=== PATIENT | male | born 1935 | race Caucasian/White ===

== ENCOUNTER 2019-07-16 11:30 | Inpatient (IN) | payer MEDICARE, OTHER ==
[~2019-07-16] VITALS: Ht 188 cm; Wt 90.7 kg
[~2019-07-16 11:30] MED LIST: ADULT LOW DOSE81 MG OR; CALCIUM 500 +1 EAC4 PO; FISH OIL 1,001000 MG PO; GLUCOPHAGE500 MG PO; LIPITOR40 MG PO; NITROGLYCERIN0.4 MG SUBLING; PLAVIX 75 MG TA75 MG OR; TOPROL XL25 MG PO
[2019-07-16 11:34] VITALS: BP 167/84
[2019-07-16 11:50] LABS: ABSOLUTE BASOPHILS 0.1 thou/uL (0.0-0.2); ABSOLUTE EOSINOPHILS 0.1 thou/uL (0.0-0.7); ABSOLUTE LYMPHOCYTES 0.9 thou/uL (0.8-5.3); ABSOLUTE MONOCYTES 0.7 thou/uL (0.0-1.2); ABSOLUTE NEUTROPHILS 6.4 thou/uL (1.6-8.1); BASOPHILS 0.7 %; EOSINOPHILS 1.4 %; HEMATOCRIT 45.8 % (42.0-52.0); HEMOGLOBIN 15.5 gm/dL (14.0-18.0); LYMPHOCYTES 10.9 %; MCH 29.8 pg (26.0-34.0); MCHC 33.8 g/dL (28.0-37.0); MCV 88.1 fL (80.0-100.0); MONOCYTES 8.6 %; MPV 9.9 fl. (7.2-11.1); NUCLEATED RBCS 0 /100WBC; PLATELET COUNT* 122 thou/uL (150-400); POLYS 78.4 %; RDW-CV 15.3 % (10.5-14.5); WBC 8.1 thou/uL (4.0-11.0)
[2019-07-16] MEDS ORDERED: ZESTRIL5 MG PO (11:56)
[2019-07-16 12:03] LABS: CALCIUM 9.4 mg/dL (8.5-10.1); POTASSIUM 4.2 mmol/L (3.5-5.1)
[2019-07-16 12:12] LABS: ALBUMIN 3.8 g/dL (3.4-5.0); MAGNESIUM 2.1 mg/dL (1.8-2.4); TOTAL BILIRUBIN 0.7 mg/dL (<0.1-1.0); TOTAL PROTEIN 7.5 g/dL (6.4-8.2)
[2019-07-16 15:07] VITALS: BP 163/85
--- NOTE | 2019-07-16 15:31 | EKG ---
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 : 1935 Requested By: Dominick Yancey Order Number: [id number] MD: Sathish Franco Measurements Intervals [place] Rate: 73 P: 44 W[place]: 178 QRS: -66 QRSD: 146 T: 54 QT: 419 QTc: 462 Interpretive Statements Sinus rhythm RBBB and LAFB Baseline wander in lead(s) V2 No previous ECG available for comparison Electronically Signed On 07-16-2019 15:31:03 PARTNERSHIP 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
[2019-07-16 16:35] VITALS: BP 153/76
[2019-07-16] MEDS ORDERED: ASA81BEC PO (17:33)
[2019-07-16] MEDS ORDERED: CALCIUM 500 MG1 EAC2 PO (17:34)
[2019-07-16 19:40] VITALS: BP 126/66
[2019-07-17] VITALS (19 sets, daily range): BP systolic 119–1129; BP diastolic 60–92
[2019-07-17 05:11] LABS: CHOLESTEROL 110 mg/dL (<200); HDL CHOLESTEROL 39 mg/dL (>40); LDL CHOLESTEROL 60 mg/dL (<100); TC:HDL 2.8 Ratio (Not establshd); TRIGLYCERIDE 56 mg/dL (<150); VLDL 11 mg/dL (<40)
[2019-07-17 05:24] LABS: SERUM ASSESSMENT Clear
[2019-07-17 08:12] LABS: INR 1.1; PROTIME 10.8 Seconds (9.20-11.50)
[2019-07-17 10:32] LABS: ABSOLUTE BASOPHILS 0.1 thou/uL (0.0-0.2); ABSOLUTE EOSINOPHILS 0.1 thou/uL (0.0-0.7); ABSOLUTE LYMPHOCYTES 0.8 thou/uL (0.8-5.3); ABSOLUTE MONOCYTES 0.6 thou/uL (0.0-1.2); ABSOLUTE NEUTROPHILS 4.2 thou/uL (1.6-8.1); BASOPHILS 1.2 %; EOSINOPHILS 1.6 %; HEMATOCRIT 41.4 % (42.0-52.0); HEMOGLOBIN 14.1 gm/dL (14.0-18.0); LYMPHOCYTES 14.6 %; MCH 29.8 pg (26.0-34.0); MCHC 33.9 g/dL (28.0-37.0); MCV 87.8 fL (80.0-100.0); MONOCYTES 10.6 %; MPV 10.7 fl. (7.2-11.1); NUCLEATED RBCS 0 /100WBC; PLATELET COUNT* 113 thou/uL (150-400); RBC 4.72 mil/uL (4.50-6.00); RDW-CV 15.1 % (10.5-14.5); WBC 5.8 thou/uL (4.0-11.0)
[2019-07-17 10:38] LABS: CALCIUM 8.9 mg/dL (8.5-10.1); POTASSIUM 4.4 mmol/L (3.5-5.1)
[2019-07-17 10:43] LABS: ALBUMIN 3.3 g/dL (3.4-5.0); TOTAL BILIRUBIN 0.7 mg/dL (<0.1-1.0)
--- NOTE | 2019-07-17 10:45 | CON ---
[facility] [address] [place] [address] CONSULTATION Name: ANTHONY DE PAZ Room: [address] IN [facility]#: [id number] Admission: 07/16/19 Attend Phys: Sanjiv Mojica Discharge: Date of : 33 Report #: [id number] THIS REPORT FOR: //name// cc: Michael Clinton MD, Richard C. MD ~ THIS REPORT FOR: //name// CC: Michael Zhou DATE OF SERVICE: 07/16/2019 CARDIOLOGY CONSULTATION HISTORY OF PRESENT ILLNESS: The patient is an 84-year-old single white male who I was asked to see in the Emergency Room after complaining of chest pain. The patient initially presented back in 2009. I placed a stent in his diagonal artery at [facility]. He has done well since that time. A year ago, he underwent a stress echocardiogram that showed no evidence of ischemia with an ejection fraction of 60%. I just saw him in Cardiology Clinic in March when he was doing well. He stays fairly active. However, the past couple of weeks, he has been having intermittent chest pressure. It occasionally makes him diaphoretic. He has had no energy. He denied the pressure being related to food. It occurred with exertion. It also occurs at night. There is no associated shortness of breath or nausea. After the episode last night, he came to the Emergency Room and was admitted for further evaluation and treatment. He has had no bleeding. He does have a chronic cough. No recent fever. Denies exertional dyspnea, palpitations or syncope. PAST MEDICAL HISTORY: Significant for back surgery, cataract extraction, knee replacement, removal of a skin cancer. He has a history of prostate cancer. MEDICATIONS: Include aspirin, Lipitor, metformin, lisinopril. ALLERGIES: He has no known drug allergies. FAMILY HISTORY: Negative for heart disease. SOCIAL HISTORY: He is , lives by himself [place], [place]. No smoking or alcohol abuse. REVIEW OF SYSTEMS: No history of stroke. He had previous vascular screening, showed no carotid stenosis. He has had no history of asthma, liver disease, kidney disease, [place] [address] CONSULTATION Name: ANTHONY DE PAZ [place] Room: [address]#: [id number] Admission: 07/16/19 Attend Phys: Sanjiv Mojica Discharge: Date of : 33 Report #: [id number] PHYSICAL EXAMINATION: GENERAL: Revealed an elderly male, appeared in no acute distress. VITAL SIGNS: Blood pressure 150/80, pulse is 80. HEENT: He is anicteric, mucous membranes moist. NECK: Veins do not appear distended. No carotid bruits. CHEST: Clear to auscultation. CARDIOVASCULAR: Regular rate and rhythm, grade 2 systolic ejection murmur. ABDOMEN: Soft. EXTREMITIES: Had no edema. SKIN: Cool and dry. NEUROLOGIC: Nonfocal. 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 His chest x-ray in the Emergency Room today showed normal heart size and clear lung mosley. LABORATORY DATA: Sodium 140, BUN 20, creatinine 1.0. Liver function studies were normal. Troponin 0.06. BNP 417. White blood cell count 8.1, hemoglobin 15.5. IMPRESSION AND RECOMMENDATIONS: 1. Unstable angina. Recommend cardiac catheterization. 2. Diabetes. 3. Hyperlipidemia. The patient is on a statin drug. 4. 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 5. Aortic sclerosis. No evidence of significant aortic stenosis. <ELECTRONICALLY SIGNED> By: Sathish Franco MD, FACC 07/17/19 1045 1420 [id number] Franco MD, FACC /nt
--- NOTE | 2019-07-17 16:37 | 2DMMODE ---
[place] [address] 2 D/M-MODE ECHOCARDIOGRAM Name: ANTHONY DE PAZ Room: [address] IN [facility]#: [id number] Admission: 07/16/19 Attend Phys: Luis Angel Zhou Discharge: Date of : 33 Date of Service: 07/17/19 1636 Report #: [id number] THIS REPORT FOR: cc: Michael Clinton MD, Richard C. MD Liston, Michael J. MD [facility] ~ APPROVED REPORT Study performed: 07/17/2019 14:25:44 EXAM: Comprehensive 2D, Doppler, and color-flow Echocardiogram Patient Location: In-Patient Room #: [facility] BSA: 2.17 HR: 66 bpm BP: 144/92 mmHg Other Information Study Quality: Good Indications Chest Pain 2D Dimensions IVSd: 11.68 (7-11mm) LVOT Diam: 20.41 (18-24mm) LVDd: 44.22 mm PWd: 9.55 (7-11mm) Ascending Ao: 34.41 (22-36mm) LVDs: 24.84 (25-40mm) Aortic Root: 23.97 mm Volumes Left Atrial Volume (Systole) LA ESV Index: 11.50 mL/m2 Aortic Valve AoV Peak Jorge Luis.: 1.33 m/s AO Peak Gr.: 7.03 mmHg LVOT Max P.49 mmHg AO Mean Gr.: 3.90 mmHg LVOT Mean P.44 mmHg LVOT Max V: 1.06 m/s AO V2 VTI: 25.01 cm LVOT Mean V: 0.73 m/s ELSIE (VTI): 2.91 cm2 LVOT V1 VTI: 22.20 [place] [address] 2 D/M-MODE ECHOCARDIOGRAM Name: ANTHONY DE PAZ Room: [address] IN [facility] [place] [facility]#: [id number] Admission: 07/16/19 Attend Phys: Luis Angel Zhou Discharge: Date of : 33 Date of Service: 07/17/19 1636 Report #: [id number] E/A Ratio: 0.52 MV Decel. Time: 314.94 ms MV E Max Jorge Luis.: 0.45 m/s MV PHT: 91.33 ms MVA (PHT): 2.41 cm2 TDI E/Lateral E': 7.50 E/Medial E': 5.63 Medial E' Jorge Luis.: 0.08 m/s Lateral E' Jorge Luis.: 0.06 m/s Pulmonary Valve PV Peak Jorge Luis.: 0.90 m/s PV Peak Gr.: 3.23 mmHg Tricuspid Valve RAP Estimate: 5.00 mmHg TR Peak Gr.: 15.88 mmHg RVSP: 20.88 mmHg PA Pressure: 20.88 mmHg Left Ventricle The left ventricle is normal size. There is normal LV segmental wall motion. There is normal left ventricular wall thickness. Left ventricular systolic function is normal. LVEF is 55-60%. Grade I - abnormal relaxation pattern. Right Ventricle The right ventricle is normal size. The right ventricular systolic function is normal. Atria The left atrium size is normal. The right atrium size is normal. Aortic Valve The aortic valve is normal in structure. Mild aortic regurgitation. There is no aortic valvular stenosis. Mitral Valve The mitral valve is normal in structure. There is no mitral valve regurgitation noted. No evidence of mitral valve stenosis. Tricuspid Valve The tricuspid valve is normal in structure. Mild tricuspid regurgitation. No pulmonary hypertension[place] [address] 2 D/M-MODE ECHOCARDIOGRAM Name: ANTHONY DE PAZ Room: [address]#: [id number] Admission: 07/16/19 Attend Phys: Luis Angel Zhou Discharge: Date of : 33 Date of Service: 07/17/19 1636 Report #: [id number] The pulmonary valve is normal in structure. There is no pulmonic valvular regurgitation. Great Vessels The aortic root is normal in size. IVC is normal in size and collapses >50% with inspiration. Pericardium There is no pericardial effusion. <Conclusion> The left ventricle is normal size. There is normal left ventricular wall thickness. Left ventricular systolic function is normal. LVEF is 55-60%. Grade I - abnormal relaxation pattern. Mild tricuspid regurgitation. No pulmonary hypertension. <ELECTRONICALLY SIGNED> By: Jimbo Martinez MD, FACC 07/17/19 1636 1636 1636 Jimbo Martinez MD, FACC /INF
[2019-07-18 00:38] VITALS: BP 108/63
[2019-07-18 04:00] VITALS: BP 119/69
[2019-07-18 05:02] LABS: HEMATOCRIT 44.1 % (42.0-52.0); HEMOGLOBIN 14.8 gm/dL (14.0-18.0); MCH 29.4 pg (26.0-34.0); MCHC 33.6 g/dL (28.0-37.0); MCV 87.7 fL (80.0-100.0); MPV 9.7 fl. (7.2-11.1); RBC 5.03 mil/uL (4.50-6.00); RDW-CV 15.2 % (10.5-14.5); WBC 7.6 thou/uL (4.0-11.0)
[2019-07-18 05:29] LABS: CALCIUM 8.7 mg/dL (8.5-10.1); CREATININE 1.1 mg/dL (0.6-1.3); POTASSIUM 4.2 mmol/L (3.5-5.1)
[2019-07-18 07:50] VITALS: BP 143/76
--- NOTE | 2019-07-18 10:43 | EKG ---
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
--- NOTE | 2019-07-18 10:48 | EKG ---
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
[2019-07-18 12:00] VITALS: BP 116/72
[2019-07-18 12:09] VITALS: BP 116/72
[2019-07-18] MEDS ORDERED: PLAVIX 75 MG TA75 MG PO (13:27)
--- NOTE | 2019-07-19 08:53 | CARD ---
[address] [address] CARDIAC CATH REPORT Name: ANTHONY DE PAZ Room: [address]#: [id number] Admission: 07/16/19 Attend Phys: Sanjiv Mojica Discharge: 07/18/19 Date of : 33 Report #: [id number] THIS REPORT FOR: //name// cc: Michael Clinton MD, Richard C. MD ~ THIS REPORT FOR: //name// APPROVED REPORT Study performed: 07/17/2019 07:43:21 Patient Details Patient Status: In-Patient Room #: The patient is a 84 year-old male Event Personnel Jimbo Martinez Business Teacher, Zulema Quintana RN Setter [employer], Jose Steinberg Scryenny, Beena Vang RTR Monitor Procedures Performed cath pci Indication Unstable angina , Chest pain Risk Factors Hypercholesterolemia, Hypertension Previous Procedures/Diagnoses Previous PCI, Previous Femoral Procedure Admission/Lab Medications/Medications given during procedure Glycoprotein IllbIlla Inhibitors, Heparin Unfract. Procedure Narrative The patient was brought electively to the Cardiac Catheterization Laboratory and was prepped and draped in a sterile manner. The right wrist was infiltrated with 1% Lidocaine subcutaneous anesthesia. A 6F sheath was inserted into the right radial artery. Coronary angiography was performed using coronary diagnostic catheters. The left coronary system was accessed and visualized with a [place] 4.0 6fr catheter. Left ventricular/Aortic Valve gradient assessed via catheter pullback. Closure device was deployed with a 6 Fr Mynx. The patient tolerated the procedure well and there were no complications [address] [address] CARDIAC CATH REPORT Name: ANTHONY DE PAZ Room: [address]#: [id number] Admission: 07/16/19 Attend Phys: Sanjiv Mojica Discharge: 07/18/19 Date of : 33 Report #: [id number] associated with the procedure. There was no hematoma. Unable to visualize rca from the radial approach despite multiple catheters. Decided to perform procedure from the right femoral artery. Vascband placed over the right radial artery at the end of the procedure. Intraoperative Conscious Sedation Dose: 3352 mGy Contrast Type and Amount: Omnipaque 300 ml Coronary Angiography The patient's coronary anatomy is co- dominant. Diagnostic Cath Left Main The left main coronary artery appears short and normal. The left main bifurcates into a left anterior descending and circumflex coronary artery. LAD The LAD has a high-grade 95% stenosis proximally prior to the takeoff of a first diagonal branch. The remainder of the vessel is free of significant disease. Diagonal 1 There is a widely patent stents in the proximal portion of the first diagonal branch. The remainder the vessel is free of significant disease. Circumflex There is mild plaquing in the proximal portion of the circumflex was coronary artery. Distally there is mild plaquing. No hemodynamically significant stenoses were noted. OM1 A large branched first obtuse marginal branch appears free of significant disease. OM2 A moderate size second obtuse marginal branch has minimal plaquing proximally. OM3 A moderate size third obtuse marginal branch diffusely mildly plaqued without significant stenoses. Right Coronary unable to visualize despite mutliple catheters. Left Ventriculography Left Ventriculography was not performed. Hemodynamics The aortic pressure is 123/73 mmHg with a mean of 95 mmHg. The left ventricular pressure is 128/20 mmHg with a mean of mmHg. The left ventricular end diastolic pressure is 20 mmHg. There was no gradient across the aortic valve upon pullback. Pullback from the left ventricle to the aorta revealed no gradient [place] [address] CARDIAC CATH REPORT Name: ANTHONY DE PAZ Room: [address]#: [id number] Admission: 07/16/19 Attend Phys: Sanjiv Mojica Discharge: 07/18/19 Date of : 34 Report #: [id number] PCI Technique Lesion Anticoagulation was achieved with Heparin. bolus of iv aggrastat given Percutaneous coronary intervention was performed on the proximal left anterior descending artery segment. The lesion stenosis prior to intervention was 90% with BONIFACIO 3 flow. A XB3.5 Guide Catheter was used to engage the lm ostium. A BMW Interventional Guidewire was used to cross the lesion. BALLOON DILATION A Balloon catheter 3.0x8 was inserted and inflated up to 16.00atm for 89seconds. Repeat angiography revealed the following post-dilatation results: 40% stenosis. Additional Inflation: 18.00atm for 17seconds. STENT DEPLOYMENT A drug-eluting stent 3.5x12 Emmanuel was inserted and inflated up to 12.00atm for 8seconds. Repeat angiography revealed the following post-stent deployment results: 0% stenosis. Additional Inflation: 18.00atm for 23seconds. Unable to pass 12 x 4.0 mm Xience stent. Required additional predilation. Final angiography reveals 0 % stenosis with BONIFACIO 3 flow. Conclusion 1. 90% stenosis of the proximal LAD 2. no restenosis of stent in the second diagonal branch 3. unable to visualize the rca 4. successful placement of a drug eluting stent in the lad Recommendations If recurrent angina, consider aortic root injection to identify the takeoff of the rca Medications Administered Clopidogrel Diagnostic Cath Approved by: Jimbo Martinez MD Date/Time: 07/18/2019 17:40:13 <ELECTRONICALLY SIGNED> By: Sathish Franco MD, [facility] 07/19/19 0852 0852 [id number] Franco MD, FAC /INF
== END 2019-07-18 14:10 | disposition home or self-care (01) | DRG 246 ==
LOC: M.ERS 11:30 → M.TBA-ER 13:11 → M.2W 13:11
PROVIDERS: Emergency Medicine Emergency Medical Services; Internal Medicine Cardiovascular Disease; ADMIT Internal Medicine
PROC: 4A023N7 Measurement of Cardiac Sampling and Pressure, Left Heart, Percutaneous Approach (ICD-10-PCS; principal; 2019-07-17)
PROC: 027034Z Dilation of Coronary Artery, One Artery with Drug-eluting Intraluminal Device, Percutaneous Approach (ICD-10-PCS; principal; 2019-07-17)
PROC: B2111ZZ Fluoroscopy of Multiple Coronary Arteries using Low Osmolar Contrast (ICD-10-PCS; principal; 2019-07-17)
DX: I25.110 Atherosclerotic heart disease of native coronary artery with unstable angina pectoris (principal); I21.A9 Other myocardial infarction type; I50.33 Acute on chronic diastolic (congestive) heart failure; I11.0 Hypertensive heart disease with heart failure; E78.5 Hyperlipidemia, unspecified; E78.00 Pure hypercholesterolemia, unspecified; I70.0 Atherosclerosis of aorta; Z96.651 Presence of right artificial knee joint; E11.9 Type 2 diabetes mellitus without complications; Z85.46 Personal history of malignant neoplasm of prostate; Z95.5 Presence of coronary angioplasty implant and graft; Z86.018 Personal history of other benign neoplasm; Z79.899 Other long term (current) drug therapy; Z79.84 Long term (current) use of oral hypoglycemic drugs; Z98.49 Cataract extraction status, unspecified eye; Z79.82 Long term (current) use of aspirin; Z98.52 Vasectomy status; Z85.07 Personal history of malignant neoplasm of pancreas; Z92.21 Personal history of antineoplastic chemotherapy; Z82.49 Family history of ischemic heart disease and other diseases of the circulatory system

== ENCOUNTER → 2019-09-10 | Outpatient (CLI) | payer MEDICARE, OTHER ==
[~2019-09-10] MED LIST changes: +ASA81BEC PO; +CALCIUM 500 MG1 EAC2 PO; +PLAVIX 75 MG TA75 MG PO; +ZESTRIL5 MG PO
[2019-09-10 09:35] LABS: HEMATOCRIT 41.7 % (42.0-52.0); HEMOGLOBIN 14.3 gm/dL (14.0-18.0); MCH 30.2 pg (26.0-34.0); MCHC 34.2 g/dL (28.0-37.0); MCV 88.3 fL (80.0-100.0); RBC 4.73 mil/uL (4.50-6.00); RDW-CV 15.2 % (10.5-14.5); WBC 5.7 thou/uL (4.0-11.0)
[2019-09-10 09:38] LABS: ANION GAP 7 mmol/L (7-16); BUN 17 mg/dL (7-18); CALCIUM 8.9 mg/dL (8.5-10.1); CHLORIDE 106 mmol/L (98-107); CO2 28 mmol/L (21-32); CREATININE 1.1 mg/dL (0.6-1.3); GLUCOSE 106 mg/dL (70-99); POTASSIUM 4.8 mmol/L (3.5-5.1); SODIUM 141 mmol/L (136-145)
[2019-09-10 09:40] LABS: APTT 24.4 Seconds (25.0-31.3); PROTIME 10.4 Seconds (9.20-11.50)
[2019-09-10 09:53] LABS: ALBUMIN 3.5 g/dL (3.4-5.0); ALKALINE PHOSPHATASE 69 U/L (46-116); CHOLESTEROL 114 mg/dL (<200); HDL CHOLESTEROL 39 mg/dL (>40); LDL CHOLESTEROL 61 mg/dL (<100); SGOT 14 U/L (15-37); SGPT 21 U/L (30-65); TC:HDL 2.9 Ratio (Not establshd); TOTAL BILIRUBIN 0.8 mg/dL (<0.1-1.0); TRIGLYCERIDE 70 mg/dL (<150); VLDL 14 mg/dL (<40)
--- NOTE | 2019-09-10 09:54 | NUR ---
PROCEDURE WAS SCHEDULED IMPROPERLY. HE DOES NOT NEED CATH PROCEDURE. AT THE POINT WHEN DR. GOODRICH DISCOVERED THAT HE DOES NOT NEED CATH PROCEDURE, ALREADY IV LINE WAS STARTED AND LABS WERE SENT.
[2019-09-10 09:59] LABS: SERUM ASSESSMENT Clear
== END | disposition home or self-care (01) ==
LOC: M.CL 08:35
PROVIDERS: Internal Medicine Cardiovascular Disease
DX: R07.9 Chest pain, unspecified (principal); Z53.8 Procedure and treatment not carried out for other reasons; E11.9 Type 2 diabetes mellitus without complications; Z79.899 Other long term (current) drug therapy; Z79.82 Long term (current) use of aspirin